=== PATIENT | male | born 1965 | race Caucasian/White ===

== ENCOUNTER 2022-03-19 10:33 | Outpatient (CLI) | payer BC, SELFPAY ==
[2022-03-19 13:54] LABS: Cholesterol* 140 mg/dL (90-199)
[2022-03-19 13:55] LABS: HDL Cholesterol* 28 mg/dL (>=40); LDL Cholesterol Calculated 69 mg/dL (<100); Triglycerides* 213 mg/dL (40-149)
== END 2022-03-19 10:34 | disposition home or self-care (01) ==
LOC: FRMREF 11:06
PROVIDERS: PCP Family Medicine; Visit Provider Family Medicine
DX: E11.9 Type 2 diabetes mellitus without complications (principal); E78.5 Hyperlipidemia, unspecified; I10 Essential (primary) hypertension
CPT/HCPCS: 80061

== ENCOUNTER 2022-06-13 07:05 | Outpatient (CLI) | payer BC, SELFPAY ==
--- NOTE | 2022-06-13 07:15 | MR_ITS ---
[address] [address] Phone:?[phone] Fax:?[phone] Referring Physician Information: Sandhya Reza M.D. [id number] [facility] [address] Phone:?[phone] Fax:?[phone] Patient:?aMyo Mcbride D.O.B:?1965 Sex:?Male Phone:?[phone] [facility] MRN:?[id number] Exam Date:?06/13/2022 ? EXAM: MRI OF THE LEFT KNEE CLINICAL INFORMATION: The patient is a 56-year-old with left knee pain. Evaluate for meniscal tear. Evaluate for DJD . Evaluate for effusion PRIOR SURGERY: None reported. COMPARISON STUDIES: There are no prior studies available for comparison. TECHNICAL INFORMATION: Imaging was performed on a high-field, 1.5 Lisa MR scanner. Axial proton-density and axial fat-suppressed T2 imaging of the left knee was performed in addition to sagittal proton-density and sagittal fat- suppressed T2 imaging. Coronal proton-density, T2, and STIR imaging was also performed. FINDINGS: Articular/Extraarticular collections: Effusion: Moderate. Popliteal cyst: Minimal. Loose bodies: No well-defined intra-articular loose bodies are present. Subcutaneous and extraarticular soft tissues: Nonspecific subcutaneous soft tissue edema and/or hemorrhage can be seen along the anterior, medial, and lateral aspects of the left knee. Osseous structures: Increased fat-suppressed signal intensity can be seen within the central and medial aspects of the proximal tibia on coronal series 8 image 24 and on sagittal series 6 image 9. The findings are in keeping with broad-based changes of reactive edema, contusion, or stress change. No evidence for well-defined fracture can be seen. No other bony abnormalities about the knee are noted. Ligamentous structures: ACL: Intact and normal in appearance. PCL: Thickening and irregularity of the PCL can be seen without well-defined transverse disruption of PCL fibers. The findings are in keeping with a moderate incomplete PCL sprain. MCL: Intact and normal in appearance. LCL: Intact and normal in appearance. Posterolateral corner: Intact and normal in appearance. Posteromedial corner: No posteromedial corner soft tissue injury. Semimembranosus and pes anserine tendons demonstrate no tendinopathy or associated bursitis. Extensor mechanism/Patellar retinacular structures: Patellar tendon: Intact, without tendinopathy. Quadriceps tendon: Intact, without tendinopathy. Retinacula: The medial and lateral retinacula are intact. The medial patellofemoral ligament is intact. Medial compartment: Medial meniscus: Degeneration and fraying of the middle and posterior portions of the medial meniscus can be seen without definite areas of more well-defined tearing. The remainder of the medial meniscus appears intact. No parameniscal cyst formation is identified. Medial femoral condyle: No chondromalacia, chondral defect, or osteochondral abnormality. Medial tibial plateau: No chondromalacia, chondral defect, or osteochondral abnormality. Lateral compartment: Lateral meniscus: The lateral meniscus is abnormal in appearance. There is broad-based apical free edge and inferior surface tearing of the middle and posterior portions of the lateral meniscus seen on coronal series 7 image 23 and on sagittal series 6 image 24. The area of tearing measures approximately 22 mm in greatest dimension. The anterior horn appears intact. No parameniscal cyst formation is identified. Lateral femoral condyle: No chondromalacia, chondral defect, or osteochondral abnormality. Lateral tibial plateau: No chondromalacia, chondral defect, or osteochondral abnormality. Patellofemoral compartment: Patella: No chondromalacia, chondral defect, or osteochondral abnormality. Trochlea: No chondromalacia, chondral defect, or osteochondral abnormality. Neurovascular: No definite neurovascular abnormalities are seen. CONCLUSION: 1. Broad-based tearing of the middle and posterior portions of the lateral meniscus. 2. Degeneration and fraying of the medial meniscus without well-defined tearing. 3. Contusion versus stress injury or reactive edema involving the central and medial aspects of the proximal tibia. 4. Moderate knee joint effusion and minimal popliteal cyst. 5. Moderate incomplete PCL sprain. The ligamentous structures of the knee are otherwise intact. [facility] Electronically signed on 06/13/2022 2:00:00 PM by Kel Paredes M.D.
== END 2022-06-13 07:06 | disposition home or self-care (01) ==
LOC: MRI 07:06
PROVIDERS: Visit Provider Family Medicine
DX: M25.562 Pain in left knee (principal); M23.252 Derangement of posterior horn of lateral meniscus due to old tear or injury, left knee; M25.462 Effusion, left knee; S83.522A Sprain of posterior cruciate ligament of left knee, initial encounter
CPT/HCPCS: 73721

== ENCOUNTER 2022-09-20 10:15 | Outpatient (RCR) | payer OTHER, BC, SELFPAY ==
--- NOTE | 2022-08-21 11:07 | PT.OPDN ---
[facility] Daily Note PT [facility] Daily Note Start: 06/26/22 15:39 Freq: Status: Active Protocol: Document 08/21/22 10:21 CJT (Rec: 08/21/22 11:07 CJT [id number]) E-signed By Niall Vega, PT PT OP Daily Progress Note Visit Information Note Type Recert/Progress Note Visit Number 10 Insurance Authorized Visits tbd Physician Authorized Visits eval and treat Cancellation Note Treatment Cancelled Patient-No Show Insurance Information Recert Due Date 10/02/22 Insurance Name Georgette Novak Medical Diagnosis S83.289A - other tear of lateral meniscus, current injury, unspecified knee, initial encounter Treating Diagnosis M25.562 - L knee pain M25.662 - L knee stiffness Referring Pérez Phillips PA-C Subjective Subjective Pt reports he was very sore after last session. Quads both sore making transfers challenging. Today he feels great. Excited to return to work. Pain Comments No pain. Home Exercise Home Exercise Comments [id number] Objective Other/Pertinent Objective Knee strength measures 5/5 MMT B for both knee flexion and extension *pt does note an ache in posterior L knee with L knee flexion L knee AROM: 2-0-125 Heath's positive for ache in posterior knee with lower leg IR and knee flexion. Patient Instructed in Risks/Benefits No Therapeutic Exercise Therapeutic Exercise Minutes (minutes) 42 Therapeutic Exercise: To Restore Elliptical - 5 minutes Functional Status Supine bridge 2 x 10 Standing hip extension with band 2 x 15 Leg Press - 3 x 10, 130#, 150# , 150# Eccentric heel raise 2 x 10 ea Tall-> half kneel on AirEx 2 x 5 ea Static stance with ball toss/ catch: narrow BETH, tandem, SL x 2 rounds ea Sled push/pull Treatment Minutes Timed Code Treatment Minutes 42 Total Treatment Time 42 Billing Units Therapeutic Exercise Units 3 Assessment/Impression Assessment/Impression Mayo has shown exceptional progress in therapy thus far. His knee is no longer showing signs of post-activity swelling, stiffness in the AM is minimal if at all, and he has not had pain in his L knee for several weeks now. His ROM and strength is WNL although he does report a dull ache in posterior L knee with HS activation for knee flexion. Last week Mayo was able to complete step-ups on 18 platform with use of both hands for assistance. This is similar to the activity that will be required of him to step up and into large pieces of equipment/machinery at his job when he returns to full duties. Mayo will continue therapy sessions throughout the month of August to allow him to return to highest level of function and allow for safe transition back into full work duties. Plan of Care Physical Therapy Goals STG - To be completed in 2-3 weeks: 1. Pt will report consistent use of ice as well as elevation of L LE following work to reduce inflammation and swelling. MET 2. Pt will demonstrate 120 degrees of knee flexion on L to allow for ease of descending steps without soft tissue restrictions. MET LTG - To be completed in 8 weeks: 1. Pt to be I with HEP so that they may I manage progression of symptoms. 2. Pt will perform 10+ squats with good control over medial/ lateral deviation of knees to show improved functional strength to assist with transfers. 3. Pt will demonstrate 5/5 MMT knee flexion/extension without pain to provide greater support to knee joint and allow for ease of ambulation. MET 4. Pt will report ability to ascend/descend ladders at work without onset of pain and without subsequent swelling so that he may return to full work duties without restrictions. Daily Plan of Care Continue per POC Student Supervision Licensed PT Directed/Approved Treatment, Reviewed POC with Patient,Made Contact with Patient, Participated in Treatment Documentation Reviewed By Jar Capper Yes Recertification Information Provider Signature Shows Agreement With POC & Medical Necessity
== END 2022-09-25 11:47 | disposition home or self-care (01) ==
PROVIDERS: PCP Family Medicine; Visit Provider Physician Assistant Surgical
DX: S83.289D Other tear of lateral meniscus, current injury, unspecified knee, subsequent encounter (principal); Z51.89 Encounter for other specified aftercare
CPT/HCPCS: 97110; 97140; 97161; 97530

== ENCOUNTER 2022-09-27 08:33 | Outpatient (CLI) | payer BC, SELFPAY ==
[2022-09-27 12:09] LABS: Creatinine Urine 154.5 mg/dL
[2022-09-27 12:14] LABS: Microalbumin Creatinine Ratio 0 mg/g (0-30); Microalbumin Urine 1 mg/dL
[2022-09-27 13:57] LABS: Albumin* 4.3 g/dL (3.3-5.0); Chloride* 107 mmol/L (96-114)
[2022-09-27 13:58] LABS: Potassium* 4.8 mmol/L (3.6-5.1); Sodium* 140 mmol/L (135-149)
[2022-09-27 14:00] LABS: Aspartate Amino Transferase* 42 U/L (12-35); Bilirubin Total* 0.5 mg/dL (0.1-1.5); Carbon Dioxide* 25 mmol/L (20-32); Creatinine* 0.8 mg/dL (0.5-1.5); Estimated Glomerular Filt Rate 104 ml/min; Total Protein* 6.9 g/dL (6.0-8.3)
[2022-09-27 14:01] LABS: Alanine Aminotransferase* 37 U/L (4-50); Alkaline Phosphatase* 62 U/L (40-150); Blood Urea Nitrogen* 15 mg/dL (7-30); Calcium* 8.8 mg/dL (8.4-10.6); Glucose* 120 mg/dL (60-115)
== END 2022-09-27 08:34 | disposition home or self-care (01) ==
PROVIDERS: Family Medicine; PCP Family Medicine; Visit Provider Family Medicine
DX: E11.9 Type 2 diabetes mellitus without complications (principal); I10 Essential (primary) hypertension; E78.5 Hyperlipidemia, unspecified; E66.01 Morbid (severe) obesity due to excess calories
CPT/HCPCS: 80053; 82043; 82570

== ENCOUNTER 2023-06-10 07:43 | Outpatient (CLI) | payer BC, SELFPAY ==
[2023-06-10 14:21] LABS: Total Protein Urine < 5 mg/dL
[2023-06-10 14:25] LABS: Creatinine Urine 83.6 mg/dL
[2023-06-10 14:33] LABS: Microalbumin Creatinine Ratio 10 mg/g (0-30); Microalbumin Urine < 1 mg/dL
[2023-06-10 14:34] LABS: PSA Screen* 0.61 ng/mL (0.10-4.00)
[2023-06-10 14:53] LABS: Hepatitis C Virus Antibody* Negative (Negative)
== END 2023-06-10 07:44 | disposition home or self-care (01) ==
PROVIDERS: PCP Family Medicine; Visit Provider Family Medicine
DX: Z00.00 Encounter for general adult medical examination without abnormal findings (principal); E11.9 Type 2 diabetes mellitus without complications; E78.5 Hyperlipidemia, unspecified; I10 Essential (primary) hypertension; E66.01 Morbid (severe) obesity due to excess calories; Z11.59 Encounter for screening for other viral diseases; Z12.5 Encounter for screening for malignant neoplasm of prostate; Z79.899 Other long term (current) drug therapy
CPT/HCPCS: 80053; 80061; 82043; 82570; 82607; 84153; 84156; 86803

== ENCOUNTER 2024-06-18 07:22 | Outpatient (CLI) | payer BC, SELFPAY | END 2024-06-18 07:23 | disposition home or self-care (01) | LOC: NFLDREF 06-19 11:52 | PROVIDERS: PCP Family Medicine; Referring Provider Family Medicine; Visit Provider Family Medicine | DX: Z00.00 Encounter for general adult medical examination without abnormal findings (principal); E11.9 Type 2 diabetes mellitus without complications; I10 Essential (primary) hypertension; E11.69 Type 2 diabetes mellitus with other specified complication; E78.5 Hyperlipidemia, unspecified; N52.1 Erectile dysfunction due to diseases classified elsewhere; E66.01 Morbid (severe) obesity due to excess calories; Z68.42 Body mass index [BMI] 45.0-49.9, adult; Z79.4 Long term (current) use of insulin | CPT/HCPCS: 80053; 80061; 82043; 82570; 82607; G0103 ==

== ENCOUNTER 2025-06-28 07:30 | Outpatient (CLI) | payer BC, SELFPAY | END 2025-06-28 07:31 | disposition home or self-care (01) | PROVIDERS: PCP Family Medicine; Visit Provider Family Medicine | DX: E11.69 Type 2 diabetes mellitus with other specified complication (principal); E78.5 Hyperlipidemia, unspecified; I10 Essential (primary) hypertension; Z79.4 Long term (current) use of insulin | CPT/HCPCS: 80053; 80061; 82043; 82570; 82607; G0103 ==